=== PATIENT | female | born 1975 | race Caucasian/White ===

== ENCOUNTER 2022-11-10 22:46 | Emergency (ER) | payer OTHER ==
[~2022-11-10] VITALS: Ht 165.1 cm; Wt 59.9 kg
[2022-11-10 23:31] VITALS: BP 134/71
[2022-11-11] MEDS ORDERED: AMOX-1230 PO (00:31)
[2022-11-11] MEDS ORDERED: AMOXIL/CLAVULANATE 875/125 MG 1 TAB PO ONE (00:35)
[2022-11-11 00:44] VITALS: BP 134/71
--- NOTE | 2022-11-11 00:44 | NUR ---
Patient discharged with v/s stable. Written and verbal after care instructions given and explained. New rx augmentin. Patient verbalized understanding. Ambulatory with steady gait. All questions addressed prior to discharge. Advised to follow up with PMD.
== END 2022-11-11 00:44 | disposition home or self-care (01) ==
LOC: MED 22:46
DX: S50.811A Abrasion of right forearm, initial encounter (principal); W55.01XA Bitten by cat, initial encounter; Y93.89 Activity, other specified; Y92.89 Other specified places as the place of occurrence of the external cause; Y99.8 Other external cause status
CPT/HCPCS: 99283

== ENCOUNTER 2022-12-07 13:07 | Emergency (ER) | payer OTHER ==
[~2022-12-07] VITALS: Ht 152.4 cm; Wt 56.7 kg
[~2022-12-07 13:07] MED LIST: AMOX-1230 PO
[2022-12-07 13:18] VITALS: BP 142/85
[2022-12-07] MEDS ORDERED: KETOROLAC 30 MG/ML VIAL IM ONE (14:55)
[2022-12-07 15:02] VITALS: BP 142/85
--- NOTE | 2022-12-07 15:07 | NUR ---
Patient discharged with v/s stable. Written and verbal after care instructions given and explained. Patient verbalized understanding. Ambulatory with steady gait. All questions addressed prior to discharge. Advised to follow up with PMD.
== END 2022-12-07 15:07 | disposition home or self-care (01) ==
LOC: MED 13:07
DX: M79.641 Pain in right hand (principal); Z79.899 Other long term (current) drug therapy
CPT/HCPCS: 96372; 99285; J1885

== ENCOUNTER 2024-03-06 18:10 | Emergency (ER) | payer OTHER ==
[~2024-03-06] VITALS: Ht 152.4 cm; Wt 47.6 kg
[2024-03-06 18:25] VITALS: BP 110/65; PULSE 84; RESP 24; TEMP 98.5; O2SAT 99
== END 2024-03-06 19:26 | disposition left against medical advice (07) ==
LOC: MED 18:10
DX: R51.9 Headache, unspecified (principal); H92.03 Otalgia, bilateral; Z53.21 Procedure and treatment not carried out due to patient leaving prior to being seen by health care provider